=== PATIENT | male | born 1930 | race Caucasian/White ===

== ENCOUNTER 2019-09-05 17:27 | Inpatient (IN) ==
[2019-09-05] MEDS ORDERED: LACTULOSE 20 GM/30 ML UDCUP PO PRN (21:05)
[2019-09-05] MEDS ORDERED: ONDANSETRON 4 MG/2 ML VIAL IV PRN (21:05)
[2019-09-05] MEDS ORDERED: guaiFENesin/DM ER 600-30 MG TABLET PO PRN (21:05)
[2019-09-05] MEDS ORDERED: NITROGLYCERIN SL 0.4 MG TABLET SL PRN (21:11)
[2019-09-05] MEDS ORDERED: hydrALAZINE 20 MG/1 ML VIAL IV PRN (21:13)
[2019-09-05] MEDS ORDERED: ENOXAPARIN 30 MG/0.3 ML SYRINGE SUBCUT SCH (21:30)
[2019-09-05 21:40] LABS: Basophils % 0.3 % (0.0-0.8); Eosinophils % 0.3 % (0.00-10.9); Hematocrit 39.4 VOL% (42.0-52.0); Hemoglobin 12.7 GM/DL (14.0-18.0); Immature Granulocytes Absolute 0.11 #; Lymphocytes # 0.9 10*3/uL (1.4-4.0); Lymphocytes % 8.3 % (21.2-54.2); Mean Corpuscular HGB Conc 32.2 GM/DL (32-36); Mean Corpuscular Volume 88.1 FL (87-102); Mean Platelet Volume 9.1 FL (9.6-12.0); Monocytes % 10.4 % (1.7-12.7); Neutrophils % 79.7 % (38.7-73.9); Platelet Count 154 T/CUMM (130-400); Red Blood Count 4.47 MC/CUMM (3.8-5.5); Red Cell Distribution Width 14.7 % (9.3-17.3); White Blood Count 11.2 T/CUMM (4-12)
[2019-09-05] MEDS: SODIUM CHLORIDE 0.45% 1,000 ML IV SCH (21:53)
[2019-09-05] MEDS: METOPROLOL TARTRATE 25 MG TABLET PO SCH (21:58)
[2019-09-05] MEDS: ACETAMINOPHEN 325 MG TABLET PO PRN (21:58)
[2019-09-05 22:08] LABS: Albumin 2.5 G/DL (3.4-5.0); Bilirubin,Total 0.6 MG/DL (0.2-1.0); Calcium 8.7 MG/DL (8.5-10.1); Osmolality,Calculated 327.4 MOS/KG (273-304)
[2019-09-06] MEDS: AZTREONAM 2,000 MG in SODIUM CHLORIDE 0.9% 100 ML IV SCH ×5 (00:26→21:05)
[2019-09-06 02:05] LABS: Amorphous Crystals,Urine Occasional /HPF (Few); Apearance,Urine Slightly Hazy (Clear); Bilirubin,Urine Negative (Negative); Blood, Urine Moderate mg/dL (Negative); Glucose,Urine (UA) Negative (Negative); Hyaline Casts,Urine 8 /LPF (0-3); Ketones,Urine Negative (Negative); Mucus,Urine Occasional /LPF (Occasional); Nitrite,Urine Positive (Negative); Protein,Urine Negative; RBC,Urine 19 /HPF (0-4); Squamous Epithelial Cell,Urine Occasional /HPF (0-10); Urine Color Yellow (Yellow); Urine Specific Gravity 1.015 (1.001-1.035); Urine Urobilinogen < 2.0 EU/DL (0.2-1.0); WBC,Urine 18 /HPF (0-6)
[2019-09-06 04:48] LABS: Basophils % 0.4 % (0.0-0.8); Eosinophils # 0.1 10*3/uL (0.0-0.87); Eosinophils % 1.3 % (0.00-10.9); Hematocrit 37.3 VOL% (42.0-52.0); Hemoglobin 12.1 GM/DL (14.0-18.0); Immature Granulocytes % 1.3 %; Immature Granulocytes Absolute 0.12 #; Lymphocytes # 0.9 10*3/uL (1.4-4.0); Mean Corpuscular HGB Conc 32.4 GM/DL (32-36); Mean Corpuscular Volume 89.4 FL (87-102); Mean Platelet Volume 9.8 FL (9.6-12.0); Platelet Count 136 T/CUMM (130-400); Red Blood Count 4.17 MC/CUMM (3.8-5.5); Red Cell Distribution Width 14.6 % (9.3-17.3); White Blood Count 9.4 T/CUMM (4-12)
[2019-09-06 05:17] LABS: Albumin 2.3 G/DL (3.4-5.0); Bilirubin,Total 1.1 MG/DL (0.2-1.0); Calcium 8.7 MG/DL (8.5-10.1); Osmolality,Calculated 326.4 MOS/KG (273-304); Risk Ratio 3.01; Total Protein 5.7 G/DL (6.4-8.3); VLDL CHOLESTEROL 22.2 MG/DL
[2019-09-06] MEDS: LEVOTHYROXINE 50 MCG TABLET PO SCH (07:20)
[2019-09-06] MEDS: CLOPIDOGREL 75 MG TABLET PO SCH (08:36)
[2019-09-06] MEDS: ASPIRIN 325 MG TABLET PO SCH (08:36)
[2019-09-06] MEDS: METOPROLOL TARTRATE 25 MG TABLET PO SCH ×2 (08:36→21:03)
[2019-09-06] MEDS: ACETAMINOPHEN 325 MG TABLET PO PRN (08:36)
[2019-09-06] MEDS ORDERED: TUBERCULIN SKIN TEST 0.1 ML SYRINGE INTRADERM ONE (09:00)
[2019-09-06] MEDS: DEXTROSE 5% 1,000 ML IV SCH (15:39)
[2019-09-06] MEDS: ZINC OXIDE PASTE 113 GM TUBE TOP SCH ×2 (15:39→21:04)
[2019-09-06] MEDS: SODIUM CHLORIDE 0.45% 1,000 ML IV SCH (15:40)
[2019-09-06] MEDS ORDERED: ATORVASTATIN 20 MG TABLET PO SCH (21:00)
[2019-09-06] MEDS: ATORVASTATIN 40 MG TABLET PO SCH (21:03)
[2019-09-06] MEDS: HEPARIN 5,000 UNIT/1 ML VIAL SUBCUT SCH (21:04)
[2019-09-07] MEDS: AZTREONAM 2,000 MG in SODIUM CHLORIDE 0.9% 100 ML IV SCH ×4 (03:48→20:17)
[2019-09-07] MEDS: LEVOTHYROXINE 50 MCG TABLET PO SCH (06:01)
[2019-09-07] MEDS: HEPARIN 5,000 UNIT/1 ML VIAL SUBCUT SCH ×3 (06:01→20:18)
[2019-09-07] MEDS: CLOPIDOGREL 75 MG TABLET PO SCH (09:05)
[2019-09-07] MEDS: COENZYME Q10 100 MG CAPSULE PO SCH (09:05)
[2019-09-07] MEDS: METOPROLOL TARTRATE 25 MG TABLET PO SCH ×2 (09:05→20:18)
[2019-09-07] MEDS: ZINC SULFATE 220 MG CAPSULE PO SCH (09:05)
[2019-09-07] MEDS: ASPIRIN 325 MG TABLET PO SCH (09:05)
[2019-09-07] MEDS: MULTIVITAMIN (BEROCCA) TABLET PO SCH (09:05)
[2019-09-07] MEDS: ZINC OXIDE PASTE 113 GM TUBE TOP SCH ×2 (09:06→20:18)
[2019-09-07] MEDS: DEXTROSE 5% 1,000 ML IV SCH (09:07)
[2019-09-07] MEDS ORDERED: POTASSIUM CHLORIDE 20 MEQ/15 ML UDCUP PO ONE (16:19)
[2019-09-07] MEDS: ATORVASTATIN 40 MG TABLET PO SCH (20:18)
[2019-09-08] MEDS: DEXTROSE 5% 1,000 ML IV SCH (03:08)
[2019-09-08] MEDS: AZTREONAM 2,000 MG in SODIUM CHLORIDE 0.9% 100 ML IV SCH (03:08)
[2019-09-08] MEDS: HEPARIN 5,000 UNIT/1 ML VIAL SUBCUT SCH ×2 (05:36→14:21)
[2019-09-08 05:57] LABS: Calcium 7.9 MG/DL (8.5-10.1); Osmolality,Calculated 290.4 MOS/KG (273-304)
[2019-09-08] MEDS ORDERED: LEVOTHYROXINE 75 MCG TABLET PO SCH (06:30)
[2019-09-08] MEDS ORDERED: LEVOFLOXACIN 500 MG TABLET PO ONE (09:00)
[2019-09-08] MEDS ORDERED: POTASSIUM CHLORIDE 20 MEQ/15 ML UDCUP PO ONE (09:00)
[2019-09-08] MEDS ORDERED: POTASSIUM CHLORIDE 20 MEQ TABLET PO ONE (09:00)
[2019-09-08] MEDS: POTASSIUM CHLORIDE RIDER 10 MEQ in PREMIX 1 EACH IV SCH ×4 (09:54→13:13)
[2019-09-08] MEDS: ZINC SULFATE 220 MG CAPSULE PO SCH (09:55)
[2019-09-08] MEDS: ASPIRIN 325 MG TABLET PO SCH (09:55)
[2019-09-08] MEDS: CLOPIDOGREL 75 MG TABLET PO SCH (09:56)
[2019-09-08] MEDS: MULTIVITAMIN (BEROCCA) TABLET PO SCH (09:56)
[2019-09-08] MEDS: COENZYME Q10 100 MG CAPSULE PO SCH (09:56)
[2019-09-08] MEDS: METOPROLOL TARTRATE 25 MG TABLET PO SCH (09:56)
[2019-09-08] MEDS: ZINC OXIDE PASTE 113 GM TUBE TOP SCH (10:00)
[2019-09-08] MEDS ORDERED: SODIUM PHOSPHATE ENEMA 133 ML BOTTLE RECTAL ONE (10:00)
[2019-09-08 16:30] VITALS: BP 151/73
== END 2019-09-08 16:38 | DRG 871 ==
LOC: N.2E 19:05
PROVIDERS: ADMIT Internal Medicine; ATTEND Internal Medicine